=== PATIENT | male | born 1965 | race Caucasian/White ===

== ENCOUNTER → 2021-09-18 07:41 | Outpatient (BNVA) | payer SELFPAY | PROVIDERS: PCP Internal Medicine; Visit Provider Internal Medicine | DX: Z02.79 Encounter for issue of other medical certificate (principal) ==

== ENCOUNTER 2022-01-16 07:42 | Outpatient (REF) | payer BC, SELFPAY ==
[2022-01-16 11:13] LABS: MANUAL DIFF FLAG NO
[2022-01-16 11:15] LABS: Basophils Absolute Auto 0.1 X10*3/uL (0.0-0.2); Basophils Percent Auto 1.4 % (0-2); Eosinophils Absolute Auto 0.4 X10*3/uL (0.0-0.4); Eosinophils Percent Auto 4.7 % (0-4); Hematocrit 43.7 % (42.0-52.0); Hemoglobin 14.6 g/dl (14.0-18.0); Imm Gran Abs Auto 0.02 X10*3/uL (0.00-0.03); Imm Gran Pct Auto 0.3 % (0.0-0.4); Lymphocytes Absolute Auto 3.4 X10*3/uL (1.2-4.9); Lymphocytes Percent Auto 44.7 % (20-40); Mean Corpuscular HGB Conc 33.4 g/dl (31.0-36.0); Mean Corpuscular Hemoglobin 31.1 pg (27.0-33.0); Mean Platelet Volume 9.9 fL (9.4-12.4); Monocytes Absolute Auto 0.6 X10*3/uL (0.1-1.2); Monocytes Percent Auto 7.2 % (2-11); Neutrophils Absolute Auto 3.2 x10*3/uL (2.0-8.3); Neutrophils Percent Auto 41.7 % (45-73); Platelet Count 365 X10*3/uL (160-400); Red Cell Distribution Width 12.1 % (11.0-16.0); White Blood Count 7.6 X10*3/uL (4.8-10.8)
[2022-01-16 11:26] LABS: Alanine Aminotransferase 28 U/L (0-40); Albumin Level 4.2 g/dL (3.5-5.0); Alkaline Phosphatase 61 U/L (39-117); Anion Gap 13 (12-20); Aspartate Amino Transferase 20 U/L (5-37); Bilirubin Total 0.7 mg/dL (0.0-1.0); Blood Urea Nitrogen 16 mg/dL (9-16); Carbon Dioxide 23 mmol/L (22-29); Chloride 108 mmol/L (96-108); Cholesterol 160 mg/dL; Estimated Glomerular Filt Rate > 60; Glucose Fasting 91 mg/dL (60-99); HDL Cholesterol 33 mg/dL; LDL Cholesterol Calculated 98 mg/dl; Potassium 4.2 mmol/L (3.3-5.1); Sodium 140 mmol/L (135-145); Triglycerides 149 mg/dL
[2022-01-20 14:25] LABS: Testosterone, Total 461 ng/dL (250-1100)
== END 2022-01-16 07:43 | disposition home or self-care (01) ==
LOC: HO.MANLDS 07:42
PROVIDERS: PCP Physician Assistant; Visit Provider Physician Assistant
DX: I10 Essential (primary) hypertension (principal); E29.1 Testicular hypofunction
CPT/HCPCS: 36415; 80053; 80061; 84403; 85025

== ENCOUNTER 2023-01-04 08:03 | Outpatient (REF) | payer BC, SELFPAY ==
[2023-01-04 11:35] LABS: MANUAL DIFF FLAG NO
[2023-01-04 11:52] LABS: Basophils Absolute Auto 0.1 X10*3/uL (0.0-0.2); Basophils Percent Auto 1.1 % (0-2); Eosinophils Absolute Auto 0.3 X10*3/uL (0.0-0.4); Eosinophils Percent Auto 3.1 % (0-4); Hematocrit 43.1 % (42.0-52.0); Hemoglobin 14.7 g/dl (14.0-18.0); Imm Gran Abs Auto 0.02 X10*3/uL (0.00-0.03); Imm Gran Pct Auto 0.2 % (0.0-0.4); Lymphocytes Absolute Auto 3.5 X10*3/uL (1.2-4.9); Lymphocytes Percent Auto 41.7 % (20-40); Mean Corpuscular HGB Conc 34.1 g/dl (31.0-36.0); Mean Corpuscular Hemoglobin 31.7 pg (27.0-33.0); Mean Corpuscular Volume 92.9 fL (80.0-98.0); Mean Platelet Volume 10.2 fL (9.4-12.4); Monocytes Absolute Auto 0.6 X10*3/uL (0.1-1.2); Monocytes Percent Auto 7.3 % (2-11); Neutrophils Absolute Auto 3.9 x10*3/uL (2.0-8.3); Neutrophils Percent Auto 46.6 % (45-73); Platelet Count 427 X10*3/uL (160-400); Red Blood Count 4.64 X10*6/uL (4.60-5.80); Red Cell Distribution Width 11.9 % (11.0-16.0); White Blood Count 8.3 X10*3/uL (4.8-10.8)
[2023-01-04 12:34] LABS: Alanine Aminotransferase 27 U/L (0-40); Albumin Level 4.3 g/dL (3.5-5.0); Alkaline Phosphatase 69 U/L (39-117); Anion Gap 13 (12-20); Aspartate Amino Transferase 18 U/L (5-37); Bilirubin Total 0.7 mg/dL (0.0-1.0); Blood Urea Nitrogen 14 mg/dL (9-16); Calcium 9.1 mg/dL (8.4-10.2); Carbon Dioxide 25 mmol/L (22-29); Chloride 107 mmol/L (96-108); Cholesterol 166 mg/dL; Estimated Glomerular Filt Rate > 60; Glucose Random 91 mg/dL (60-115); HDL Cholesterol 32 mg/dL; LDL Cholesterol Calculated 106 mg/dl; Potassium 4.4 mmol/L (3.3-5.1); Prostate Specific Antigen 0.49 ng/mL (<0.05-4.0); Sodium 141 mmol/L (135-145); Total Protein 6.8 g/dL (6.5-8.0); Triglycerides 142 mg/dL
== END 2023-01-04 08:04 | disposition home or self-care (01) ==
LOC: HO.MANLDS 08:03
PROVIDERS: Visit Provider Physician Assistant
DX: Z12.5 Encounter for screening for malignant neoplasm of prostate (principal); I10 Essential (primary) hypertension
CPT/HCPCS: 36415; 80053; 80061; 84153; 85025

== ENCOUNTER 2025-01-22 15:08 | Outpatient (REF) | payer BC, SELFPAY ==
--- OUTSIDE RECORDS SUMMARY | 2025-01-22 17:17 | XMS_ITS | Continuity of Care Document ---
Author Organization [facility], [facility] Address [address] [place] [address] Assessment No assessment recorded. Plan of Treatment Reminders Order Date Submit Date Provider Last Modified By Organization Details Last Modified Time Details Appointments SDV 2024 02:45P KATERINE URIOSTEGUI Not available Not available Not available FOLLOW UP 15 2024 09:00A KATERINE URIOSTEGUI Not available Not available Not available Lab iron + TIBC + ferritin, serum 2024 025 [facility], [address] [place] [address], [id number], 01/22/2025 14:55:57 CBC w/ auto diff 2024 025 [facility], [address] [place] [address], [id number], 01/22/2025 14:55:56 CMP, serum or plasma 2024 025 [facility], [address] [place] [address], [id number], 01/22/2025 14:55:57 vitamin B12 + folate, serum or blood 2024 025 [facility], [address] [place] [address], [id number], 01/22/2025 14:55:57 hemoglobi n A1c, QN, blood 2024 025 [facility], [address] [place] [address], [place], [id number], 01/22/2025 14:55:57 TSH + T4, serum 2024 025 [facility], [address] [place] [address], [place], [id number], 01/22/2025 14:55:57 magnesium , serum or plasma 2024 025 [facility], [address] [place] [address], [place], [id number], 01/22/2025 14:55:56 Referral None recorded. Procedures None recorded. Surgeries None recorded. Imaging XR, chest, 2 view 2024 [email or web address] [facility] Central Scheduling (Not Breast), [address] [place] [address], [id number], 01/22/2025 15:26:30 Medication Orders prednison e 10 mg tablet 2024 025 [id number], [address] [place], [place], [id number], 01/22/2025 14:57:34 azithromy jerrell 250 mg tablet 2024 025 [facility] #[id number], [address] [place], [place], [id number], 01/22/2025 14:57:35 Patient TargetsNo targets recorded. Patient InstructionsNo instructions recorded. Reason for Referral None Reported. Problems Name Problem SNOMED Code Status Onset Date Resolution Date Notes Provider Name and Address Organization Details Recorded Time Acid reflux 482496505 Completed 201812/23/2018 Ольга Aragon NP, [address] [place], [address], [facility] 9 16:04:41 Rosa Isela santos 52877423 Active 2017 Not Available [facility] 13:52:57 Hypogona dism 07160619 Active 2017 Not Available [facility] 13:52:57 Gastroes ophageal reflux disease 929672133 Active 2017 Not Available [facility] 13:52:57 Insomnia 256008018 Active 2017 Not Available [facility] 13:52:57 Bursitis of hip 63516678 Active 2017 Not Available [facility] 13:52:57 Hypertri glycerid emia 822559575 Completed 201704/23/2018 Ольга Aragon NP, S [address] [place] [address], [address], [facility] 8 10:20:52 History of repair of musculot endinous cuff of shoulder 172739254 Active 2017 Not Available [facility] 13:52:57 Tear of meniscus of knee 376956765 Active 2017 repaired 2015 Not Available [facility] 13:52:57 Opioid abuse 1184392 Active 2017 Not Available [facility] 13:52:57 Scalp lacerati on 070284997 Active 2023 KATERINE HERRERA [address] [place], [address], [facility] 4 15:39:41 Dyspnea 161224619 Active 2024 KATERINE HERRERA [address] [place], [address], [facility] 5 14:50:17 Fatigue 34873262 Active 2024 KATERINE HERRERA [address] [place], [address], [facility] 5 14:53:33 Cough 08010444 Active 2024 KATERINE HERRERA [address] [place], [address], [facility] 5 14:55:07 Problem Notes None recorded. Procedures Surgical History Date Name Laterality Status Provider Name and Address Organization Details Recorded Time 4 Suture/Stap le removal completed KATERINE HERRERA [address], [place], [address], [facility] 01/21/2024 15:39:20 Imaging Results None recorded. Procedure Notes None recorded. Medical Equipment None Reported. Allergies No known drug allergies Medications Name Sig Start Date Stop Date Status Note LastModified by Organization Details LastModified Time Prescriptio n - Prior Authorizati on Request active Not Available Not Available N ot Available prednisone 10 mg tablet 40 mg x 2 days30 mg x 2 days20 mg x 2 days10 mg x 2 days 2024 active Not Available Not Available Not Avai lable azithromyci n 250 mg tablet TAKE 2 TABLETS (500 MG) BY ORAL ROUTE ONCE DAILY FOR 1 DAY THEN 1 TABLET (250 MG) BY ORAL ROUTE ONCE DAILY FOR 4 DAYS 2024 active Not Available Not Available Not Avai lable lisinopril 20 mg tablet TAKE 1 TABLET BY MOUTH DAILY active Not Available Not Available No t Available pantoprazol e 40 mg intravenous solution 12/23 completed Not Available Not Available Not Available acetaminoph en 300 mg-codeine 30 mg tablet 09/16 completed Not Available Not Available Not Available omeprazole 40 mg capsule,del ayed release 1 po qd 05/25 completed Not Available Not Available Not Available oxycodone-a cetaminophe n 5 mg-325 mg tablet TAKE 1 TABLET BY MOUTH EVERY 6 HOURS NEEDED FOR PAIN. WILL CAUSE DROWSINES S 07/16 completed Not Available Not Available Not Available amoxicillin 875 mg tablet TAKE 1 TABLET BY MOUTH TWICE DAILY UNTIL FINISHED 07/16 completed Not Available Not Available Not Available pantoprazol e 40 mg tablet,ander yed release 1 po daily 08/07 completed Not Available Not Available Not Available lisinopril 10 mg tablet TAKE 1 TABLET BY MOUTH ONCE DAILY 05/25 completed Not Available Not Available Not Available metronidazo le 0.75 % topical cream APPLY TOPICALLY TO FACE TWICE DAILY active Not Available Not Available No t Available ibuprofen 600 mg tablet TAKE 1 TABLET BY MOUTH EVERY 6 HOURS FOR 7 DAYS NEEDED FOR PAIN MAY ALTERNATE WITH TYLENOL TAKE WITH FOOD OR MILK 08/07 completed Not Available Not Available Not Available amoxicillin 875 mg-edilbertojohannedavide m clavulanate 125 mg tablet TAKE 1 TABLET BY MOUTH EVERY 12 HOURS FOR 7 DAYS 08/07 completed Not Available Not Available Not Available eszopiclone 3 mg tablet TAKE 1 TABLET BY MOUTH EVERY EVENING 05/25 completed Not Available Not Available Not Available omeprazole otc 30 mg qd 08/07 completed Not Available Not Available Not Available testosteron e 20.25 mg/1.25 gram per pump act.(1.62 %) transdermal gel APPLY 2 PUMPS TOPICALLY TO THE AFFECTED AREA EVERY DAY active Not Available Not Available No t Available Afluria 1079-8393 (PF) 45 mcg(15 mcg x 3)/0.5 mL intramuscul ar syringe 04/23 completed Not Available Not Available Not Available Shingrix (PF) 50 mcg/0.5 mL intramuscul ar suspension, kit 01/02 completed Not Available Not Available Not Available Afluria Quad (PF) 60 mcg (15 mcg x 4)/0.5 mL IM syringe 12/23 completed Not Available Not Available Not Available Plenvu 140 gram-9 gram-5.2 gram powder packs USE DIRECTED 01/08 completed Not Available Not Available Not Available Fluarix Quad (PF) 60 mcg (15 mcg x 4)/0.5 mL IM syringe 09/16 completed Not Available Not Available Not Available Flucelvax Quad (PF) 60 mcg (15 mcg x 4)/0.5 mL IM syringe 01/02 completed Not Available Not Available Not Available Vitals Date Recorded Body height Body mass index (BMI) Body weight Heart rate Oxygen saturation Oxygen saturation in Arterial blood by Pulse oximetry Systolic blood pressure Diastolic blood pressure Provider Name and Address Organization Details Last Updated DateTime 5 187.96 cm 30.4 kg/m2 620216. 31 g 76 /min 98 % 98 % 138 mm[Hg] 84 mm[Hg] [facility] 5 14:40:30 Social History Question Answer Notes LastModified by Organizat ion Details LastModified Time Tobacco Smoking Status Never Smoker Not Available [facility] 09/27/2020 03:36:24 What Was The Date Of Your Most Recent Tobacco Screening? 01/22/2025 [email or web address] Information not available 01/22/2025 Sex: Unknown Functional Status None recorded. Mental Status None recorded. Family History Nothing Reported. Medical History No medical history recorded. Immunizations Vaccine Type Date Status Note Provider Nam e and Address Organization Details Recorded Time COVID-19, mRNA, LNP-S, PF, 30 mcg/0.3 mL dose 1 completed Not Available [facility] 02/14/2022 17:10:52 COVID-19, mRNA, LNP-S, PF, 30 mcg/0.3 mL dose 1 completed Not Available [facility] 02/14/2022 17:10:52 Influenza, split virus, quadrivalent, preservative 1 completed Not Available [facility] 02/14/2022 17:10:52 Influenza, split virus, quadrivalent, preservative 8 completed Not Available [facility] 02/14/2022 17:10:52 COVID-19, mRNA, LNP-S, PF, 50 mcg/0.5 mL dose 1 completed Rukhsana cross [place] [facility] 01/08/2023 07:58:15 Influenza, split virus, quadrivalent, preservative 9 completed Not Available [facility] 02/14/2022 17:10:52 zoster live 9 completed Not Available [facility] 02/14/2022 17:10:52 zoster live 9 completed Not Available [facility] 02/14/2022 17:10:52 Influenza, split virus, quadrivalent, preservative 0 completed Not Available [facility] 02/14/2022 17:10:52 Past Encounters Encounter ID Performer Location Encounter Start Date Encounter Closed Date Diagnosis/Indication Diagnosis SNOMED-CT Code Diagnosis ICD10 Code Diagnosis Note [id number] KATERINE HERRERA [facility] [address],[place] [address] 01/22/2025 14:30:33 01/22/2025 15:26:30 Opioid abuse 4002719 F11.10 stableno issues for the past decade Dyspnea 737601190 R06.02 will set up with lab work and imaging Fatigue 49802182 R53.83 will set up with lab work Cough 74056226 R05.2 start treatment, fu with XR and labwork Health Concerns Section Related Observation LastModified by Organization Detai ls LastModified Time None Recorded Concern Status LastModified by Organization Details LastModified Time None Recorded Payers Encounter Date Sequence Insurance Name Policy Number Policy Valente Covered Member ID Valente Member ID Guarantor Name 01/22/2025 1 CHLOE-ROJELIO: CHLOE (PPO) [id number] Lanie Dutton [id number] Delonte Dutton Notes Date Note Type Note Provider Name a nd Address Organization Details Recorded Time 01/22/2025 text/html cough/URI sympto ms has significant fatigue, coughdoes feel like he gets winded more than usualdenies chest painthe patient denies fever or chills?walking pna vs bronchitishis lungs are clear recommend imaging, bwstart treatment today KATERINE HERRERA [address], [place], [address], [place] [facility] 01/22/2025 14:59:40
--- OUTSIDE RECORDS SUMMARY | 2025-01-22 17:17 | XMS_ITS | Data Portability ---
Author Organization [facility] Service Address [address] [place] [address] Assessment Encounter Date Assessment Date Assessment LastModified by Organization Details LastModified Time 07/16/2023 07/16/2023 Patient agreed and verbally consents to this audio and video Telehealth appt via a secure platform [email or web address] Not available 07/16/2023 08:58:45 02/11/2024 02/11/2024 The patient denies little pleasure in activities they find enjoyable, feeling depressed, difficulties sleeping, feeling tired or having little energy, change in appetite, feeling guilty, overwhelmed or unmotivated. The patient denies suicidal ideation, thoughts of hurting themselves or others. Their mood is appropriate, they show good judgement and clear understanding of the conversation. They are orientated to time, place and person. They are not expressing any concerning thoughts or actions that would need further investigation and treatment for mental health. [email or web address] Not available 02/11/2024 14:44:16 Plan of Treatment Reminders Order Date Submit Date Provider Last Modified By Organization Details Last Modified Time Details Appointments SDV 2024 02:45P KATERINE URIOSTEGUI Not available Not available Not available FOLLOW UP 15 2024 09:00A KATERINE URIOSTEGUI Not available Not available Not available Lab iron + TIBC + ferritin, serum 2024 025 [facility], [address] [place] [address], [id number], 01/22/2025 14:55:57 CBC w/ auto diff 2024 025 [facility], [address] [place] [address], [id number], 01/22/2025 14:55:56 CMP, serum or plasma 2024 025 [facility], [address] [place] [address], [id number], 01/22/2025 14:55:57 vitamin B12 + folate, serum or blood 2024 025 [facility], [address] [place] [address], [id number], 01/22/2025 14:55:57 hemoglobi n A1c, QN, blood 2024 025 [facility], [address] [place] [address], [id number], 01/22/2025 14:55:57 TSH + T4, serum 2024 025 [facility], [address] [place] [address], [id number], 01/22/2025 14:55:57 magnesium , serum or plasma 2024 025 [facility], [address] [place] [address], [id number], 01/22/2025 14:55:56 PSA, total + free, serum or plasma 2023 024 [facility] (Out[facility]), [address] [place], [address], 08/07/2024 15:28:56 CMP, serum or plasma 2023 024 [facility] (Outpatient), [address] [place] [address], [id number], 08/07/2024 15:28:56 CBC w/ auto diff 2023 024 [facility] (Outpatient), [address] [place], [address], 08/07/2024 15:28:57 lipid panel, blood 2023 024 [facility] (Outpatient), [address] [place] [address], [id number], 08/07/2024 15:28:56 hemoglobi n A1c, QN, blood 2023 024 [facility] (Outpatient), [address] [place] [address], [id number], 08/07/2024 15:28:57 testoster one, free + total, serum 2023 024 [facility] (Outpatient), [address] [place] [address], [id number], 08/21/2024 08:52:06 PSA, serum or plasma 2022 023 [facility], [address] [place] [address], [id number], 07/16/2023 09:05:22 CMP, serum or plasma 2022 023 [facility], [address] [place] [address], [place], [address], 07/16/2023 09:05:22 lipid panel, blood 2022 023 [facility], [address] [place] [address], [place], [address], 07/16/2023 09:05:22 CBC w/ auto diff 2022 023 [facility], [address] [place] [address], [address], 07/16/2023 09:05:22 testoster one, total, serum 2022 023 [facility], [address] [facility], [place], [address], 07/16/2023 09:05:22 Referral None recorded. Procedures None recorded. Surgeries None recorded. Imaging XR, chest, 2 view 2024 025 [email or web address] [facility] Central Scheduling (Not Breast), [address] [place], [address], 01/22/2025 15:26:30 Medication Orders prednison e 10 mg tablet 2024 025 [id number], [address], [place], [id number], 01/22/2025 14:57:34 azithromy jerrell 250 mg tablet 2024 025 [facility] #[id number], [address], [place], [id number], 01/22/2025 14:57:35 lisinopri l 20 mg tablet 2023 024 [facility] #[id number], [address], [place], [id number], 02/11/2024 14:43:27 Patient TargetsNo targets recorded. Patient InstructionsNo instructions recorded. Reason for Referral None Reported. Results Created Date Observation Date Name Description Value Unit Range Abnormal Flag Note LastModifiedBy Organization Detail LastModifiedTime Result Notes None recorded. Problems Name Problem SNOMED Code Status Onset Date Resolution Date Notes Provider Name and Address Organization Details Recorded Time Acid reflux 534857480 Completed 201812/23/2018 Ольга Aragon NP, S [address] [place], [address], [place] [facility] 9 16:04:41 [facility] l hyperten tom 02507114 Active 2017 Not Available [facility] 13:52:57 Hypogona dism 35569103 Active 2017 Not Available [facility] 13:52:57 Gastroes ophageal reflux disease 656610321 Active 2017 Not Available [facility] 13:52:57 Insomnia 969586008 Active 2017 Not Available [facility] 13:52:57 Bursitis of hip 41873578 Active 2017 Not Available [facility] 13:52:57 Hypertri glycerid emia 999028564 Completed 201704/23/2018 Ольга Aragon NP, S [address] [place] [address], [address], [facility] 8 10:20:52 History of repair of musculot endinous cuff of shoulder 591450104 Active 2017 Not Available [facility] 13:52:57 Tear of meniscus of knee 045713592 Active 2017 repaired 2015 Not Available [facility] 13:52:57 Opioid abuse 6295083 Active 2017 Not Available [facility] 13:52:57 Scalp lacerati on 087909009 Active 2023 KATERINE HERRERA [address] [place] [address], [address], [facility] 4 15:39:41 Dyspnea 310723939 Active 2024 KATERINE HERRERA [address] [place] [address], [address], [facility] 5 14:50:17 Fatigue 89547878 Active 2024 KATERINE HERRERA [address] [place] [address], [address], [facility] 5 14:53:33 Cough 00474345 Active 2024 KATERINE HERRERA [address] [place] [address], [address], [facility] 5 14:55:07 Problem Notes None recorded. Procedures Surgical History Date Name Laterality Status Provider Name and Address Organization Details Recorded Time 4 Suture/Stap le removal completed KATERINE HERRERA [address] [facility], [place], [address], [facility] 01/21/2024 15:39:20 Imaging [...] Not Available Not Available amoxicillin 875 mg-edilbertojohannedavide zuniga clavulanate 125 mg tablet TAKE 1 TABLET [...] Available Not Available No t Available Afluria (PF) 45 mcg(15 mcg x 3)/0.5 mL [...] Available Not Available Vitals Date Recorded Body weight Heart rate Oxygen saturation Oxygen saturation in Arterial blood by Pulse oximetry Systolic blood pressure Diastolic blood pressure Provider Name and Address Organization Details Last Updated DateTime 4 671541. 11 g 90 /min 98 % 98 % 138 mm[Hg] 88 mm[Hg] [facility] 4 14:27:02 Date Recorded Body weight Heart rate Oxygen saturation Oxygen saturation in Arterial blood by Pulse oximetry Systolic blood pressure Diastolic blood pressure Provider Name and Address Organization Details Last Updated DateTime 4 621013. 01 g 84 /min 98 % 98 % 120 mm[Hg] 78 mm[Hg] Marylandon Gotti [facility] 4 15:14:46 Date Recorded Body height Body mass index (BMI) Body weight Heart rate Oxygen saturation Oxygen saturation in Arterial blood by Pulse oximetry Systolic blood pressure Diastolic blood pressure Provider Name and Address Organization Details Last Updated DateTime 5 187.96 cm 30.4 kg/m2 369105. 31 g 76 /min 98 % 98 % 138 mm[Hg] 84 mm[Hg] Mary Gotti [facility] 5 14:40:30 Social History Question Answer Notes LastModified by Organizat ion Details LastModified Time Tobacco Smoking Status Never Smoker Not Available [facility] 09/27/2020 03:36:24 What Was The Date [...] mcg/0.3 mL dose 1 completed Not Available [facility] 02/14/2022 17:10:52 COVID-19, mRNA, LNP-S, PF, 30 mcg/0.3 mL dose 1 completed Not Available [facility] 02/14/2022 17:10:52 Influenza, split virus, quadrivalent, preservative 1 completed Not Available [facility] 02/14/2022 17:10:52 Influenza, split virus, quadrivalent, preservative 8 completed Not Available [facility] 02/14/2022 17:10:52 COVID-19, mRNA, LNP-S, PF, 50 mcg/0.5 mL dose 1 completed Rukhsana cross [facility] 01/08/2023 07:58:15 Influenza, split virus, quadrivalent, preservative 9 completed Not Available [facility] 02/14/2022 17:10:52 zoster live 9 completed Not Available [facility] 02/14/2022 17:10:52 zoster live 9 completed Not Available [facility] 02/14/2022 17:10:52 Influenza, split virus, quadrivalent, preservative 0 completed Not Available [facility] 02/14/2022 17:10:52 Past Encounters Encounter ID Performer Location Encounter Start Date Encounter Closed Date Diagnosis/Indication Diagnosis SNOMED-CT Code Diagnosis ICD10 Code Diagnosis Note [id number] Ольга Aragon NP, S [facility] [address] [facility] [address] 04/23/2018 10:00:13 04/23/2018 11:51:46 Essential hypertension 05061437 I10 Tick bite without infection 006308467 T14.8XXA Male hypogonadism 932999 06 E29.1 had CPE, was reschedule d, to follow [id number] Ольга Aragon NP, [facility] [address] [facility],[place] [address] 05/13/2018 15:55:54 05/14/2018 08:10:50 Liver function tests outside reference range 646880812 R94.5 pt will do in 2 weeks Essential hypertension 42602004 I10 stable Gastroesop hageal reflux disease 081690440 K21.9 stable [id number] Ольга Aragon NP, S [facility] [address] [facility],[place] [address] 12/23/2018 15:27:39 12/23/2018 16:30:50 Adult health examination 297836792 Z00.00 Hypogonadism 38544962 E2 9.1 Essential hypertension 66709493 I10 stable Gastroesop hageal reflux disease 687065928 K21.9 stable [id number] February YAHIR Bush [facility] [address] [facility] [address],[place] [address] 09/16/2019 10:29:37 09/16/2019 11:36:47 Insomnia 513113160 G47.00 well controlled wit eszopiclon e Gastroesop hageal reflux disease 317816851 K21.9 well controlled on omeprazole insurance doesn't cover omeprazole , uses good rx Essential hypertension 13571227 I10 mildly elevated, will increase lisinopril continue diet and exercise Hypogonadism 10344031 E2 9.1 needs labs Screening for malignant neoplasm of prostate 975347498 Z12.5 needs labs Body mass index 25-29 - overweight 915899334 Z68.29 Screening for malignant neoplasm of colon 536113491 Z12.11 reluctant to have cscope, states not ready would like to have cologuard will contact his insurance for coverage and then let us know if he can have it done [id number] [facility] [address] [facility], [place] [address] 04/04/2020 09:12:52 04/04/2020 10:42:13 Fever with chills 214833862 R50.9 possible COVID 19 exposure given the fact he does have the particular symptoms and 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 will have him tested to see if he does in fact have the virus otherwise he is told to manage his symptoms with rest, fluids, and APAP and let us know if anything changes or worsens pt agrees and understand s this Dyspnea 264573782 R06.00 as below Headache 83231544 R51 as above [id number] [facility] [address] [facility], [employer] [place] [address] 05/25/2020 08:45:24 05/25/2020 09:15:07 Adult health examination 407340100 Z00.00 no concerns today does not need bloodwork as he just recently had it done in January can wait a few more months to recheck Screening for malignant neoplasm of colon 215067269 Z12.11 [place] [id number] [facility] [address] [facility] [address], [place] [address] 01/02/2021 08:48:31 01/02/2021 09:14:54 Essential hypertension 96867233 I10 BP excellent control will fu in 6 mo needs refill Hypogonadism 86894800 E2 9.1 doing much better with testostero ne needs refill no side effects or concerns Gastroesop hageal reflux disease 644925340 K21.9 stable on OTC medication , no interventi on needed [id number] KATERINE HERRERA [facility] [address] [facility] [address],[place] [address] 07/04/2021 08:53:23 07/04/2021 10:08:40 Essential hypertension 83124843 I10 wasn't taking his medication due to being out of state due to family emergencys ent in refill Gastroesop hageal reflux disease 697799588 K21.9 stable on OTC medication , no interventi on needed Hypogonadism 08507954 E2 9.1 doing much better with testostero ne needs refill no side effects or concerns Screening for malignant neoplasm of colon 520600886 Z12.11 [facility] [place] [id number] KATERINE HERRERA [facility] [address] [facility] [address] [address] 01/08/2022 08:46:31 01/08/2022 10:19:59 Essential hypertension 97166992 I10 improved Gastroesop hageal reflux disease 398319573 K21.9 stable on OTC medication , no interventi on needed Hypogonadism 94400178 E2 9.1 doing much better with testostero ne no side effects or concerns [id number] KATERINE HERRERA [facility] [address] [facility] [address],[place] [address] 07/03/2022 08:49:57 07/03/2022 10:32:43 Essential hypertension 74881860 I10 stable Gastroesop hageal reflux disease 136049198 K21.9 stable on OTC medication , no interventi on needed Hypogonadism 71917405 E2 9.1 doing much better with testostero ne no side effects or concerns Active or passive immunization 908064663 Z23 probably due for a Tdap Depression screening 171 458186 Z13.31 stable [id number] KATERINE HERRERA [facility] [address] [facility] [address],[place] [address] 01/08/2023 08:46:49 01/08/2023 09:29:26 Insomnia 212326702 G47.00 stable for now will let me know Gastroesop hageal reflux disease 815405788 K21.9 stable on OTC medication , no interventi on needed Hypogonadism 84218320 E2 9.1 doing much better with testostero ne no side effects or concerns Essential hypertension 97017596 I10 stable at home [id number] KATERINE HERRERA [facility] [address] [facility] [address] [address] 07/16/2023 07:25:16 07/16/2023 09:19:46 Essential hypertension 47812552 I10 stable at home Hypogonadism 89807892 E2 9.1 stable Insomnia 643226602 G47.0 0 stable for now will let me know Gastroesop hageal reflux disease 404728574 K21.9 stable Opioid abuse 3229703 F11 .10 stableno issues for the past decade Active or passive immunization 578687459 Z23 probably due for a Tdapwill set up with new vaccine Screening for malignant neoplasm of prostate 896327305 Z12.5 will set up with PSA screening [id number] KATERINE HERRERA [facility] [address] [facility] [address] [address] 01/21/2024 15:11:00 01/22/2024 16:13:16 Scalp laceration 319192031 S01.01XA madeleine removed [id number] KATERINE HERRERA [facility] [address] [facility] [address] [address] 02/11/2024 14:13:38 02/11/2024 15:41:14 Essential hypertension 28959335 I10 stable at home Scalp laceration 7079034 08 S01.01XA madeleine removed Opioid abuse 9625786 F11 .10 stableno issues for the past decade [id number] KATERINE HERRERA [facility] [address] [facility] [address] [address] 08/07/2024 15:05:21 08/07/2024 16:08:15 Depression screening 668836281 Z13.31 stable Essential hypertension 34525932 I10 stable at home Hypogonadism 12642269 E2 9.1 stable Screening for malignant neoplasm of prostate 455383183 Z12.5 will set up with PSA screening [id number] [facility] [address] [facility],[place] [address] 01/22/2025 14:30:33 01/22/2025 15:26:30 Opioid abuse 7107558 F11.10 stableno issues for the past decade Dyspnea 461187154 R06.02 will set up with lab work and imaging Fatigue 58254633 R53.83 will set up with lab work Cough 19459271 R05.2 start treatment, fu with XR and labwork Health Concerns Section Related Observation LastModified by Organization Detai ls LastModified Time None Recorded Concern Status LastModified by Organization Details LastModified Time None Recorded Advance Directives Directive None Recorded Payers Encounter Date Sequence Insurance Name Policy Number Policy Valente Covered Member ID Valente Member ID Guarantor Name 07/16/2023 1 [place] [id number] Lanie Dutton [id number] Dutton 01/21/2024 1 [place] [id number] Lanie Dutton [id number] Dutton 02/11/2024 1 [place] [id number] Lanie Dutton [id number] Dutton 08/07/2024 1 [place] [id number] Lanie Dutton [id number] Dutton 01/22/2025 1 [place] [id number] Lanie Bonilla Nato [id number] Dutton Notes Date Note Type Note Provider Name a nd Address Organization Details Recorded Time 3 text/html 6 mos f/u tele-med phone callpatient consents to phone call HTN: stable at home hypogonadism: stable GERD: stable at home uses as omeprazole insomnia: stable needs a new TDap vaccine KATERINE HERRERA [address] [facility], [place], [address], [facility] 07/16/2023 09:07:36 4 text/html staple removal hit his head on an auger at his work sitewithout a helmet, usually doesn't not have a helmet on but he was leaving work at the time three madeleine at urgent care well healedall three removed today in officeminimal bleeding no signs of infection KATERINE HERRERA [address] [place], [address], [facility] 01/21/2024 15:40:28 4 text/html 6 mos f/u scalp laceration: completely resolved after staple removal HTN: today in the office the patient BP is 138/88 L arm sittingthe patient is doing well on the BP medication with no side effects and no adjustment of their medications [facility] medication[facility]ies chest pain, sob, ankle swelling, orthopnea, palpitations mood is stable no other issues at this time KATERINE HERRERA [address] [place], [address], [facility] 02/11/2024 14:50:15 4 text/html 6 mos f/u doing better after the staple removal, head feels fine now, no lingering symptoms essential hypertension: today in the office the patient BP is 120/78 L arm sittingthe patient is doing well on the BP medication with no side effects and no adjustment of their medications needed today at the [facility] on medicationdenies chest pain, sob, ankle swelling, orthopnea, palpitations depression screening: The patient denies little pleasure in activities they find enjoyable, feeling depressed, difficulties sleeping, feeling tired or having little energy, change in appetite, feeling guilty, overwhelmed or unmotivated. The patient denies suicidal ideation, thoughts of hurting themselves or others. Their mood is appropriate, they show good judgement and clear understanding of the conversation. They are orientated to time, place and person. They are not expressing any concerning thoughts or actions that would need further investigation and treatment for mental health. needs f/u lab work KATERINE HERRERA [address] [place], [address], [facility] 08/07/2024 15:33:30 5 text/html cough/URI symptoms has significant fatigue, coughdoes feel like he gets winded more than usualdenies chest painthe patient denies fever or chills?walking pna vs bronchitishis lungs are clear recommend imaging, bwstart treatment today KATERINE HERRERA [address] [place] [address], [place], [address], [place] [facility] 01/22/2025 14:59:40
[2025-01-22 17:48] LABS: MANUAL DIFF FLAG NO
[2025-01-22 18:08] LABS: Estimated Average Glucose 103 mg/dL; Hemoglobin A1C 130.6362 umol/L; Hemoglobin A1c % 5.2 % (<6.0); Total Hemoglobin (HGBA1C) 3899.5026 umol/L
[2025-01-22 18:16] LABS: Alanine Aminotransferase 50 U/L (0-40); Albumin Level 4.3 g/dL (3.5-5.0); Alkaline Phosphatase 76 U/L (39-117); Anion Gap 12 (12-20); Aspartate Amino Transferase 33 U/L (5-37); Bilirubin Total 0.3 mg/dL (0.0-1.0); Blood Urea Nitrogen 16 mg/dL (9-16); Carbon Dioxide 22 mmol/L (22-29); Chloride 109 mmol/L (96-108); Estimated Glomerular Filt Rate > 60; Glucose Random 135 mg/dL (60-115); Iron 50 mcg/dL (45-160); Magnesium 2.2 mg/dL (1.6-2.6); Percent Iron Saturation 20 % (15-50); Potassium 3.9 mmol/L (3.3-5.1); Sodium 139 mmol/L (135-145); Total Iron Binding Capacity 247 mcg/dL (228-428); Total Protein 7.9 g/dL (6.5-8.0); Unsaturated Iron Binding 197 ug/dL
[2025-01-22 18:20] LABS: Basophils Absolute Auto 0.1 X10*3/uL (0.0-0.2); Basophils Percent Auto 1.3 % (0-2); Eosinophils Absolute Auto 0.5 X10*3/uL (0.0-0.4); Eosinophils Percent Auto 6.2 % (0-4); Hematocrit 44.6 % (42.0-52.0); Hemoglobin 14.9 g/dl (14.0-18.0); Imm Gran Abs Auto 0.03 X10*3/uL (0.00-0.03); Imm Gran Pct Auto 0.4 % (0.0-0.4); Lymphocytes Absolute Auto 3.3 X10*3/uL (1.2-4.9); Lymphocytes Percent Auto 42.3 % (20-40); Mean Corpuscular HGB Conc 33.4 g/dl (31.0-36.0); Mean Corpuscular Hemoglobin 31.2 pg (27.0-33.0); Mean Corpuscular Volume 93.5 fL (80.0-98.0); Monocytes Absolute Auto 0.6 X10*3/uL (0.1-1.2); Monocytes Percent Auto 8.1 % (2-11); Neutrophils Absolute Auto 3.2 x10*3/uL (2.0-8.3); Neutrophils Percent Auto 41.7 % (45-73); Platelet Count 359 X10*3/uL (160-400); Red Blood Count 4.77 X10*6/uL (4.60-5.80); Red Cell Distribution Width 12.4 % (11.0-16.0); White Blood Count 7.8 X10*3/uL (4.8-10.8)
[2025-01-22 18:39] LABS: Ferritin 236 ng/mL (20-250); Thyroid Stimulating Hormone 1.21 uIU/mL (0.32-4.0)
[2025-01-22 18:41] LABS: Vitamin B12 1195 pg/mL (200-900)
[2025-01-22 18:42] LABS: T4 Thyroxine 7.6 ug/dL (4.5-12.0)
== END 2025-01-22 15:09 | disposition home or self-care (01) ==
LOC: HO.MANLDS 15:08
PROVIDERS: Visit Provider Physician Assistant
DX: R06.02 Shortness of breath (principal); R53.83 Other fatigue; Z13.1 Encounter for screening for diabetes mellitus
CPT/HCPCS: 36415; 80053; 82607; 82728; 83036; 83540; 83735; 84436; 84443; 85025